=== PATIENT | female | born 1965 | race Caucasian/White ===

== ENCOUNTER 2017-07-04 09:26 | Day surgery (SDC) | payer BC ==
[~2017-07-04 09:26] MED LIST: Sodium Citrate/Citric Acid* 15 ML UDC PO ONE
[2017-07-04] MEDS ORDERED: Buffered Lidocaine 0.9% SYRIN* 5 ML/SYR SYRINGE ONE (09:36)
[2017-07-04] MEDS ORDERED: Sodium Citrate/Citric Acid* 15 ML UDC ONE (09:36)
[2017-07-04] MEDS ORDERED: fentaNYL* 50 MCG/ML 2 ML VIAL (100 MCG VIAL) ONE ×2 (10:28→11:42)
[2017-07-04] MEDS ORDERED: Dexamethasone IV* 4 MG/ML 1 ML (4 MG) ONE (10:29)
[2017-07-04] MEDS ORDERED: Propofol* 10 MG/ML 20 ML BTL IV PUSH ONE (10:29)
[2017-07-04] MEDS ORDERED: fentaNYL* 50 MCG/ML 2 ML VIAL (100 MCG VIAL) IV PRN (11:39)
[2017-07-04] MEDS ORDERED: DiMENhydriNATE IV* 50 MG/ML VIAL IV PUSH PRN (11:39)
[2017-07-04] MEDS ORDERED: Labetalol IV* 5 MG/ML 20 ML VIAL ONE (12:29)
[2017-07-04] MEDS ORDERED: Naloxone* 0.4 MG/ML 1 ML VIAL ONE (13:11)
[2017-07-04] MEDS ORDERED: Ketorolac INJ* 30 MG/ML 1 ML VIAL ONE (13:26)
[2017-07-04 13:43] VITALS: BP 125/80
--- NOTE | 2017-07-05 05:01 | OP ---
DATE OF OPERATION: 07/04/17 - SDS DATE OF : 65 SURGEON: Francisco James MD ANESTHESIA: General endotracheal anesthesia. PRE-OP DIAGNOSIS: Chronic tonsillitis with development of tonsil stones. POST-OP DIAGNOSIS: Chronic tonsillitis with development of tonsil stones. OPERATIVE PROCEDURE: Tonsillectomy. COMPLICATIONS: None. DISPOSITION: Good. SPECIMEN: Left and right tonsils. ESTIMATED BLOOD LOSS: Minimum. DESCRIPTION OF PROCEDURE: The patient was taken to the operating room and placed in the supine position on the operating table. General anesthesia was induced and she was orotracheally intubated, turned and draped for surgery. A Jerardo-Gurpreet mouth gag was inserted, retraction was applied, suspended from the Nicole stand. The right tonsil was grasped, manual traction was applied. Using Bovie cautery, it was dissected along its capsule, removing it from underlying pharyngeal musculature. The left tonsil was grasped, manual traction was applied. Again using Bovie cautery, it was dissected along its capsule, removing it from the underlying pharyngeal musculature. Once both tonsils were removed, hemostasis was assured in both tonsillar fossae using suction cautery. Jerardo-Gurpreet mouth gag was released. Retraction was again applied and there was no active bleeding. Orogastric tube inserted into the stomach. Stomach contents suctioned. Jerardo-Gurpreet mouth gag was released and removed. The patient tolerated this procedure well. No complications. Extubated uneventfully and transferred to the recovery room in stable condition. [id number] #: [id number] MTDD
== END 2017-07-04 14:14 | disposition home or self-care (01) ==
LOC: OR 09:26
PROVIDERS: ATTEND Otolaryngology
DX: J35.01 Chronic tonsillitis (principal); J35.8 Other chronic diseases of tonsils and adenoids; Z87.891 Personal history of nicotine dependence; K21.9 Gastro-esophageal reflux disease without esophagitis
CPT/HCPCS: 81025; 88304; A9270-GY; J1100; J1885; J2310; J2704; J3010

== ENCOUNTER 2017-08-16 14:28 | Emergency (ER) | payer BC ==
--- NOTE | 2017-08-16 16:29 | RAD ---
INDICATION: Lateral right elbow pain COMPARISON: None. TECHNIQUE: 4 views right elbow. REPORT: The visualized bones of the right elbow are well corticated and properly aligned. There is no radiographically apparent fracture or dislocation. There is no radiographic evidence of pathologic joint effusion. IMPRESSION: Normal radiograph of the right elbow. If the patient's symptoms persist further follow-up imaging is recommended.
[2017-08-16 17:15] VITALS: BP 137/87
--- NOTE | 2017-08-16 17:17 | ED ---
Donell Loving Natalie, scribed for Arturo Chavez MD on 08/16/17 at 1523 . Upper Extremity Pain - HPI Summary HPI Summary: The pt is a 51 y/o F presenting to the ED c/o right elbow pain starting a few weeks ago. The pt fell a few months ago and bruised her elbow and didnt have any other discomfort up until a few weeks ago when she was rolling out cookie dough. The pain is rated 7/10. The pain is aggravated by movement and extension of the right arm. 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 Pt additionally c/o bump on elbow. - History of Current Complaint Chief Complaint: EDExtremityUpper Stated Complaint: RIGHT ELBOW PAIN Time Seen by Provider: 08/16/17 15:01 Hx Obtained From: Patient Hx Last Menstrual Period: July 2014--IUD Mechanism Of Injury: Fall From A Standing Position - a few months ago Onset/Duration: Started Weeks Ago, Still Present Timing: Constant Severity Initially: Moderate Severity Currently: Moderate - rated 7/10 Pain Location: Elbow - right Aggravating Factor(s): Movement, Extension Alleviating Factor(s): Other - Ibuprofen and Biofreeze Associated Signs & Symptoms: Positive: Bruising, Other - bump on elbow - Allergies/Home Medications Allergies/Adverse Reactions: Allergies Allergy/AdvReac Type Severity Reaction Status Date / Time Aspirin Allergy Unknown Verified 07/11/17 12:13 Reaction Details Lidocaine Allergy Hives Verified 07/04/17 09:39 Montelukast [From Singulair] Allergy See Comment Verified 07/04/17 09:39 PMH/Surg Hx/FS Hx/Imm Hx Previously Healthy: No Endocrine/Hematology History: Denies: Hx Anticoagulant Therapy, Hx Diabetes, Hx Thyroid Disease Cardiovascular History: Denies: Hx Congestive Heart Failure, Hx Deep Vein Thrombosis, Hx Hypertension , Hx Myocardial Infarction, Hx Pacemaker/ICD Respiratory History: Denies: Hx Asthma, Hx Chronic Obstructive Pulmonary Disease (COPD), Hx Lung Cancer GI History: Reports: Hx Gastroesophageal Reflux Disease - ON DAILY MEDS Denies: Hx Gall Bladder Disease, Hx Gastrointestinal Bleed, Hx Ulcer, Hx Urosepsis History: Denies: Hx Kidney Stones, Hx Renal Disease Musculoskeletal History: Reports: Hx Tendonitis - LEFT KNEE, Other Musculoskeletal History Sensory History: Reports: Hx Contacts or Glasses - WILL WEAR GLASSES DAY OF SURGERY Opthamlomology History: Reports: Hx Contacts or Glasses - WILL WEAR GLASSES DAY OF SURGERY Neurological History: Reports: Hx Migraine - Hx OF , LAST WAS EARLY 2016 Denies: Hx Dementia, Hx Seizures, Hx Transient Ischemic Attacks (TIA) Psychiatric History: Denies: Hx Anxiety, Hx Depression, Hx Schizophrenia, Hx Bipolar Disorder - Cancer History Hx Chemotherapy: No Hx Radiation Therapy: No - Surgical History Surgery Procedure, Year, and Place: 1997 D&C [facility] [place]. 1985, [address]FT [address]EE SURGERY [facility]. 1987 x 2, 1990, 2008 LEFT KNEE SURGERY [facility] [place] Hx Anesthesia Reactions: Yes - SLOW TO WAKE UP Infectious Disease History: No Infectious Disease History: Denies: Hx Hepatitis, Hx Human Immunodeficiency Virus (HIV), History Other Infectious Disease, Traveled Outside the [place] in Last 30 Days - Family History Known Family History: Positive: Cardiac Disease, Hypertension, Diabetes - Social History Alcohol Use: Rare Alcohol Amount: 2-3 DRINKS/YEAR Substance Use Type: Reports: None Smoking Status (MU): Never Smoked Tobacco Type: Cigarettes Amount Used/How Often: 1PPWEEK SMOKED 2 YRS IN EARLY 20s Length of Time of Smoking/Using Tobacco: 2 YRS Have You Smoked in the Last Year: No Review of Systems Negative: Fever Positive: Other - right elbow pain, bump on right elbow All Other Systems Reviewed And Are Negative: Yes Physical Exam - Summary Physical Exam Summary: Appearance: The patient is well-nourished in no acute distress and in no acute pain. Skin: The skin is warm and dry and skin color reflects adequate perfusion. HEENT: The head is normocephalic and atraumatic. The pupils are equal and reactive. The conjunctivae are clear and without drainage. Nares are patent and without drainage. Mouth reveals moist mucous membranes and the throat is without erythema and exudate. The external ears are intact. The ear canals are patent and without drainage. The tympanic membranes are intact. Neck: The neck is supple with full range of motion and non-tender. There are no carotid bruits. There is no neck vein distension. Respiratory: Chest is non-tender. Lungs are clear to auscultation and breath sounds are symmetrical and equal. Cardiovascular: Heart is regular rate and rhythm. There is no murmur or rub auscultated. There is no peripheral edema and pulses are symmetrical and equal. Abdomen: The abdomen is soft and non-tender. There are normal bowel sounds heard in all four quadrants and there is no organomegaly palpated. Musculoskeletal: There is no back tenderness noted. There is good capillary refill. There is no peripheral edema or calf tenderness elicited. The patient has tenderness over lateral epicondyle and ulnar nerve. Neurological: Patient is alert and oriented to person, place and time. The patient has symmetrical motor strength in all four extremities. Cranial nerves are grossly intact. Deep tendon reflexes are symmetrical and equal in all four extremities. Psychiatric: The patient has an appropriate affect and does not exhibit any anxiety or depression. Triage Information Reviewed: Yes Vital Signs On Initial Exam: Initial Vitals Temp Pulse Resp BP Pulse Ox 98.1 F 102 20 139/91 99 08/16/17 14:31 08/16/17 14:31 08/16/17 14:31 08/16/17 14:31 08/16/17 14:31 Vital Signs Reviewed: Yes - Candace Coma Scale Coma Scale Total: 15 Diagnostics - Vital Signs Vital Signs Temp Pulse Resp BP Pulse Ox 08/16/17 14:31 98.1 F 102 20 139/91 99 - Laboratory Lab Statement: Any lab studies that have been ordered have been reviewed, and results considered in the medical decision making process. - Radiology Right Elbow XR Xray Interpretation: No Acute Changes - Normal radiograph of the right elbow. ED physician has reviewed this report. Radiology Interpretation Completed By: Radiologist Course/Dx - Course Course Of Treatment: Ms. Lucio presented with a couple weeks of right lateral elbow pain getting gradually worse. It hurts to any ROM now or palpation laterally. There is no sign of acute infection and her x-ray was negative. I think this is likely a lateral epicondylitis and will treat conservatively with rest and NSAIDS. - Diagnoses Provider Diagnoses: Lateral epicondylitis Discharge - Discharge Plan Condition: Stable Disposition: HOME Referrals: Darline Herbert MD [Primary Care Provider] - Boom hCristianson MD [Medical Doctor] - Additional Instructions: Follow up with the orthopedics, Dr. Christianson , next week. I recommend Ibuprofen for pain as needed. Return to the Emergency Department if any new or worsening symptoms occur. The documentation as recorded by the Donell arriaga Natalie accurately reflects the service I personally performed and the decisions made by me, Arturo Chavez MD.
== END 2017-08-16 17:12 | disposition home or self-care (01) ==
LOC: ED 14:28
DX: M77.11 Lateral epicondylitis, right elbow (principal); F17.210 Nicotine dependence, cigarettes, uncomplicated; Z88.6 Allergy status to analgesic agent; Z88.4 Allergy status to anesthetic agent; Z88.8 Allergy status to other drugs, medicaments and biological substances
CPT/HCPCS: 99282

== ENCOUNTER 2017-10-28 20:25 | Emergency (ER) | payer SELFPAY ==
[2017-10-28 20:32] VITALS: BP 149/96
[2017-10-28] MEDS ORDERED: Naproxen TAB* 250 MG PO ONE (21:15)
--- NOTE | 2017-10-28 21:52 | RAD ---
INDICATION: Left knee injury. TECHNIQUE: 2 views of the left knee were obtained. FINDINGS: The bones are in normal alignment. There is a joint effusion present. No fracture is seen. Joint spaces appear maintained. IMPRESSION: JOINT EFFUSION, NO FRACTURE IS SEEN. IF THE PATIENT'S SYMPTOMS PERSIST, RECOMMEND FOLLOW-UP IMAGING.
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
== END 2017-10-28 22:23 | disposition home or self-care (01) ==
LOC: ED 20:25
DX: S80.02XA Contusion of left knee, initial encounter (principal); S83.92XA Sprain of unspecified site of left knee, initial encounter; V43.53XA Car driver injured in collision with pick-up truck in traffic accident, initial encounter; Y93.89 Activity, other specified; Y92.410 Unspecified street and highway as the place of occurrence of the external cause; J30.2 Other seasonal allergic rhinitis; K21.9 Gastro-esophageal reflux disease without esophagitis; G43.909 Migraine, unspecified, not intractable, without status migrainosus; Z88.6 Allergy status to analgesic agent; Z88.4 Allergy status to anesthetic agent; Z88.8 Allergy status to other drugs, medicaments and biological substances; Z87.891 Personal history of nicotine dependence
CPT/HCPCS: 99282; A9270-GY

== ENCOUNTER → 2019-07-08 07:37 | Day surgery (SDC) | payer OTHER ==
[~2019-07-08 07:37] MED LIST changes: +Acetaminophen IV 1GM/100ML * 1,000 MG/100 ML VIAL IVPB ONE; +Bupivacaine 0.25% SDV PF* 10 ML VIAL INJ ONE; +Bupivacaine 0.5%* 50 ML MDV VIAL ONE; +Dexamethasone IV* 4 MG/ML 1 ML (4 MG) ONE; +Lactated Ringers 1000 ML Bag* 1,000 ML IV SCH; +Midazolam* 1 MG/ML 2 ML VIAL (2 MG) ONE; +Naloxone* 0.4 MG/ML 1 ML VIAL IV PRN; +Ondansetron INJ* 2 MG/ML VIAL IV PRN; +Propofol* 10 MG/ML 20 ML BTL ONE; +Sodium Citrate/Citric Acid* 15 ML UDC ONE; +ceFAZolin 2 GM in NS PREMIX(*) 2 GM/100 ML BAG IVPB ONE; +fentaNYL* 50 MCG/ML 2 ML VIAL (100 MCG VIAL) IV PRN; +fentaNYL* 50 MCG/ML 2 ML VIAL (100 MCG VIAL) ONE; +traMADol TAB* 50 MG ONE
--- NOTE | 2019-07-08 11:58 | OP ---
Operative Report - Blank - Operative Report Date of Operation: 07/08/19 Note: PATIENT: Isabelle Randall DATE OF : 1965 DATE OF SURGERY: 07/08/2019 SURGEON: Clemente Blancas MD SOLAR APPLICATIONS DEVELOPMENT ENGINEER: LATONIA Soto, whos assistance was necessary for positioning, retraction, help with instrumentation, and closure. ANESTHESIOLOGIST: Dr. De La Rosa PREOPERATIVE DIAGNOSIS: Left knee medial meniscus tear POSTOPERATIVE DIAGNOSIS: Left knee medial and lateral meniscus tears OPERATION: Left knee arthroscopy with partial medial and lateral meniscectomies ANESTHESIA: General IMPLANTS: none TOURNIQUET TIME: Less than one hour, with a well-padded thigh tourniquet at 250 mmHg. SPECIMENS: None ESTIMATED BLOOD LOSS: minimal COMPLICATIONS: none STATUS: Stable from the operating room to the recovery room and then home. INDICATIONS FOR PROCEDURE: Isabelle has had persistent left knee pain and swelling despite extensive non- operative treatment. Both operative and non operative treatment alternatives were reviewed. Further, the nature and risks of surgery were reviewed in careful detail, in the office as well as the pre-operative holding area. Our discussions regarding the risks of surgery included, but were not limited to, infection, wound problems, nerve injury, neuroma, RSD, persistent symptoms, blood clot, failure of the surgery, need for further surgery, development of arthritis, and even the remote chance of catastrophic complication, including loss of limb. DESCRIPTION OF PROCEDURE: The patient was seen in the preoperative holding unit and informed written consent was obtained. The appropriate extremity was marked. The patient was then brought to the operating room and carefully positioned on the operating room table. Anesthesia was induced. All bony prominences were padded with great care. A well-padded thigh tourniquet was placed. A chlorhexidine based pre- scrub was performed followed by a chloraprep prep and drape in standard sterile fashion. A surgical safety pause was then conducted in which we confirmed the appropriate patient, extremity, planned procedure, availability of equipment, indication and administration of prophylactic antibiotics, and DVT prophylaxis in the form of a compression boot on the non-surgical extremity. I began with an Esmarch exsanguination of the limb and inflated the tourniquet. I insufflated the joint by injecting sterile saline. I began by making a standard anterolateral knee arthroscopy portal. The arthroscope was inserted into the knee joint and a diagnostic arthroscopy was performed. There was a rent in the lateral patellar retinaculum and the cartilage appeared healthy in all 3 compartments. Then under direct visualization an anteromedial arthroscopy portal was made. I introduced a probe into the joint. This was used to probe the posterior horn medial and anterior horn lateral meniscus tears. A biter and oscillating shaver were used to debride the meniscal tears back to a stable rim. I then performed an extensive irrigation of the joint while running the shaver in each of the knee compartments to remove any loose debris. Once thoroughly irrigated and debrided , I suctioned the fluid out of the joint. The arthroscopy portals were then closed utilizing 3-0 nylon. A sterile dressing was then applied. The patient was then awakened from anesthesia and transferred to the recovery room in stable condition. There were no complications. All needle and sponge counts were correct at the end of the case. ATTESTATION: I attest I was present and scrubbed and performed the critical portions of the procedure myself. POSTOPERATIVE PLAN: The plan is for weight-bearing as tolerated with crutches. Follow-up will be in 2 weeks for likely suture removal.
[2019-07-08 13:02] VITALS: BP 130/87
== END | disposition home or self-care (01) ==
LOC: OR 07:37
PROVIDERS: ATTEND Orthopaedic Surgery
DX: S83.222A Peripheral tear of medial meniscus, current injury, left knee, initial encounter (principal); S83.282A Other tear of lateral meniscus, current injury, left knee, initial encounter; X58.XXXA Exposure to other specified factors, initial encounter; Y92.9 Unspecified place or not applicable; F41.8 Other specified anxiety disorders; K21.9 Gastro-esophageal reflux disease without esophagitis; E78.5 Hyperlipidemia, unspecified
CPT/HCPCS: A9270-GY; J0690; J1100; J2250; J2704; J3010; J3490

== ENCOUNTER 2024-07-20 06:02 | Observation (INO) ==
[~2024-07-20 06:02] MED LIST changes: -Acetaminophen IV 1GM/100ML * 1,000 MG/100 ML VIAL IVPB ONE; -Bupivacaine 0.25% SDV PF* 10 ML VIAL INJ ONE; +Bupivacaine 0.5% SDV PF 30ML VIAL ONE; -Bupivacaine 0.5%* 50 ML MDV VIAL ONE; -Dexamethasone IV* 4 MG/ML 1 ML (4 MG) ONE; -Lactated Ringers 1000 ML Bag* 1,000 ML IV SCH; -Midazolam* 1 MG/ML 2 ML VIAL (2 MG) ONE; +Naloxone 0.4 mg VIAL 0.4 mg/ml 1 ml VIAL IV PRN; -Naloxone* 0.4 MG/ML 1 ML VIAL IV PRN; +Ondansetron 4 mg VIAL 2 MG/ML 2 ml VIAL IV PRN; -Ondansetron INJ* 2 MG/ML VIAL IV PRN; -Propofol* 10 MG/ML 20 ML BTL ONE; -Sodium Citrate/Citric Acid* 15 ML UDC ONE; -Sodium Citrate/Citric Acid* 15 ML UDC PO ONE; -ceFAZolin 2 GM in NS PREMIX(*) 2 GM/100 ML BAG IVPB ONE; -fentaNYL* 50 MCG/ML 2 ML VIAL (100 MCG VIAL) IV PRN; -fentaNYL* 50 MCG/ML 2 ML VIAL (100 MCG VIAL) ONE; -traMADol TAB* 50 MG ONE
[2024-07-20] MEDS ORDERED: ceFAZolin 2 GM PREMIX 2 GM/50 ML BAG ONE (06:26)
[2024-07-20] MEDS ORDERED: Ondansetron 4 mg VIAL 2 MG/ML 2 ml VIAL ONE (07:20)
[2024-07-20] MEDS ORDERED: fentaNYL 100 mcg/2 ml 50 MCG/ML VIAL ONE ×4 (07:20→09:33)
[2024-07-20] MEDS ORDERED: Lidocaine 2% PF 5 ML VIAL ONE (07:20)
[2024-07-20] MEDS ORDERED: Dexamethasone IV 4 MG/ML VIAL 1 ml VIAL ONE (07:20)
[2024-07-20] MEDS ORDERED: Propofol 10 MG/ML 20 ML BTL ONE (07:20)
[2024-07-20] MEDS ORDERED: Midazolam 2 mg/2 ml VIAL 1 mg/ml 2 ml VIAL (2 mg) ONE (07:21)
[2024-07-20] MEDS ORDERED: HYDROmorphone 1 MG/1 ML SYRINGE ONE ×2 (08:58→12:02)
[2024-07-20] MEDS: fentaNYL 100 mcg/2 ml 50 MCG/ML VIAL IV PRN (09:36)
[2024-07-20] MEDS: HYDROmorphone 0.5 MG/0.5 ML SYRINGE IV PRN (12:06)
[2024-07-20] MEDS ORDERED: Ondansetron ODT 4 mg TAB 4 MG TAB PO PRN (13:08)
[2024-07-20] MEDS ORDERED: Lactulose 30 ml UDC PO PRN (13:08)
[2024-07-20] MEDS ORDERED: Magnesium Hydroxide LIQ 30 ML UDC PO PRN (13:08)
[2024-07-20] MEDS: Lactated Ringers 1000 ml BAG 1,000 ML IV SCH ×2 (15:02→15:28)
[2024-07-20] MEDS: Acetaminophen IV 1 GM/100ML 1,000 MG/100 ML BAG IV ONE (15:27)
[2024-07-20] MEDS: Scopolamine 1 mg/72hr PATCH TRANSDERM ONE (15:27)
[2024-07-20] MEDS: ceFAZolin 2 GM PREMIX 2 GM/50 ML BAG IV SCH (16:31)
[2024-07-20] MEDS: Magnesium Hydroxide LIQ 30 ML UDC PO SCH (20:20)
[2024-07-21] MEDS: Ondansetron 4 mg VIAL 2 MG/ML 2 ml VIAL IV PRN (09:00)
[2024-07-21] MEDS: Vitamin THERAPEUTIC TAB PO SCH (10:06)
[2024-07-21 14:15] VITALS: BP 107/68
== END 2024-07-21 16:50 | disposition home or self-care (01) ==
LOC: SSU 06:02 → OR 06:02
PROVIDERS: ADMIT Orthopaedic Surgery; ATTEND Orthopaedic Surgery